=== PATIENT | male | born 1965 | race African-American/Black ===

== ENCOUNTER 2016-05-09 14:31 | Outpatient (CLI) | payer OTHER | END 2016-05-09 14:32 | disposition home or self-care (01) | DX: G47.33 Obstructive sleep apnea (adult) (pediatric) (principal) ==

== ENCOUNTER 2016-06-13 19:13 | Outpatient (CLI) | payer OTHER | END 2016-06-13 19:14 | disposition home or self-care (01) | DX: G47.33 Obstructive sleep apnea (adult) (pediatric) (principal); Z68.33 Body mass index [BMI] 33.0-33.9, adult ==

== ENCOUNTER 2016-06-27 10:32 | Outpatient (CLI) | payer OTHER | END 2016-06-27 10:33 | disposition home or self-care (01) | DX: G47.33 Obstructive sleep apnea (adult) (pediatric) (principal) ==

== ENCOUNTER 2016-08-10 08:59 | Outpatient (CLI) | payer OTHER | END 2016-08-10 09:00 | disposition home or self-care (01) | LOC: SC 08:59 | PROVIDERS: ATTEND Nurse Practitioner Family | DX: G47.33 Obstructive sleep apnea (adult) (pediatric) (principal) | CPT/HCPCS: 99212; 99214 ==

== ENCOUNTER 2016-09-15 09:42 | Outpatient (CLI) | payer OTHER | END 2016-09-15 09:43 | disposition home or self-care (01) | LOC: SC 09:42 | PROVIDERS: ATTEND Nurse Practitioner Family | DX: G47.33 Obstructive sleep apnea (adult) (pediatric) (principal) | CPT/HCPCS: 99212; 99214 ==

== ENCOUNTER 2016-11-25 21:48 | Emergency (ER) | payer OTHER ==
--- NOTE | 2016-11-25 22:28 | ED Physician Documentation ---
PD HPI SKIN - Stated complaint Stated Complaint: LT THIGH WELT - Chief complaint Chief Complaint: General - History obtained from History obtained from: Patient - History of Present Illness Timing - onset: Yesterday Timing - duration: Days (1) Timing - details: Gradual onset (he felt a sting or bite on left thigh while bicycle riding yesterday. Swatted at it but did not see what type of insect. Local sore yesterday and evening. This morning with redness of the area that has expanded through the day. No diffuse rash nor any feeling of swelling lips nor throat.) Location: LLE (anterior thigh.) Review of Systems Constitutional: denies: Fever, Chills, Myalgias Nose: denies: Rhinorrhea / runny nose, Congestion Throat: denies: Oral lesions / sores, Sore throat Respiratory: denies: Dyspnea, Cough PD PAST MEDICAL HISTORY - Past Medical History Cardiovascular: None Respiratory: None Endocrine/Autoimmune: None - Present Medications Home Medications: Ambulatory Orders Medication Instructions Recorded Confirmed Cephalexin [Keflex] 500 mg PO QID #20 capsule 11/25/16 Cetirizine [ZyrTEC] 10 mg PO DAILY #5 tablet 11/25/16 Dexamethasone [Decadron] 4 mg PO DAILY #5 tablet 11/25/16 amLODIPine [Norvasc] 10 mg PO DAILY 11/25/16 11/25/16 hydroCHLOROthiazide [Hydrodiuril] 50 mg PO DAILY 11/25/16 11/25/16 - Allergies Allergies/Adverse Reactions: Allergies Allergy/AdvReac Type Severity Reaction Status Date / Time No Known Drug Allergies Allergy Verified 11/25/16 22:03 PD ED PE NORMAL - Vitals Vital signs reviewed: Yes - General General: Alert and oriented X 3, No acute distress, Well developed/nourished - Derm Derm: Normal color, Warm and dry, Other (left thigh anteriorly with local area of redness and swelling about 6 cm diameter, with demarcated edges. Center of it with firmer area 2 cm diameter. No fluctuance and U/S did not show any fluid collection. ) - Neuro Neuro: No motor deficit, No sensory deficit Results - Vitals Vitals: Oxygen O2 Source Room air PD MEDICAL DECISION MAKING - ED course Complexity details: considered differential (timeframe would be more c/w local reaction, though consider early infection.), d/w patient Departure - Departure Disposition: 01 Home, Self Care Clinical Impression: Insect bite of left thigh with local reaction Qualifiers: Encounter type: initial encounter Qualified Code(s): S70.362A - Insect bite ( nonvenomous), left thigh, initial encounter Condition: Stable Record reviewed to determine appropriate education?: Yes Instructions: ED Bite Sting Insect Local Allergic React, ED Infec Skin Cellulitis Follow-Up: Dickson Irving DO [Primary Care Provider] - Prescriptions: Dexamethasone [Decadron] 4 mg PO DAILY #5 tablet Cephalexin [Keflex] 500 mg PO QID #20 capsule Cetirizine [ZyrTEC] 10 mg PO DAILY #5 tablet Comments: Cold towels to the area tonight and in the morning to help reduce swelling. This may be a pronounced local reaction to the sting and so treated with steroid and antihistamine. However could also be early infection developing and so will add cephalexin antibiotic for several days in case. Recheck if not improving over the next few days as I would expect it to get better between those 2 treatments. Discharge Date/Time: 11/25/16 22:55
[2016-11-25] MEDS ORDERED: CETIRIZINE 10 MG TABLET PO STA (22:40)
[2016-11-25] MEDS ORDERED: DEXAMETHASONE 10 MG/ML VIAL PO STA (22:40)
[2016-11-25] MEDS ORDERED: CEPHALEXIN 250 MG CAPSULE PO STA (22:40)
[2016-11-25] MEDS ORDERED: CEPHALEXIN 250 MG CAPSULE PO ONE (22:46)
[2016-11-25] MEDS ORDERED: CETIRIZINE 10 MG TABLET ONE (22:46)
[2016-11-25] MEDS ORDERED: DEXAMETHASONE 10 MG/ML VIAL ONE (22:46)
[2016-11-25 22:56] VITALS: BP 165/97
== END 2016-11-25 22:55 | disposition home or self-care (01) ==
LOC: ED 21:48
DX: S70.362A Insect bite (nonvenomous), left thigh, initial encounter (principal); W57.XXXA Bitten or stung by nonvenomous insect and other nonvenomous arthropods, initial encounter; Y93.55 Activity, bike riding
CPT/HCPCS: 99283; A9270

== ENCOUNTER 2016-12-20 18:53 | Emergency (ER) | payer OTHER ==
[2016-12-20 19:06] VITALS: BP 151/96
[2016-12-20] MEDS ORDERED: DOXYCYCLINE 100 MG TABLET PO ONE (21:04)
[2016-12-20] MEDS ORDERED: DEXAMETHASONE 10 MG/ML VIAL ONE (21:04)
[2016-12-20] MEDS ORDERED: OXYMETAZOLINE NASAL SPRAY NAS ONE (21:04)
[2016-12-20] MEDS ORDERED: CHERRY SYRUP 10 ML UDC PO ONE (21:05)
--- NOTE | 2016-12-20 23:38 | ED Physician Documentation ---
PD HPI URI - Stated complaint Stated Complaint: SPIT BLOOD/RT EAR ECHO - Chief complaint Chief Complaint: Heent - History obtained from History obtained from: Patient - History of Present Illness Timing - onset: How many days ago (several) Timing duration: Days Timing details: Gradual onset, Waxing and waning Associated symptoms: Ear pain, Nasal congestion, Sinus pain (right side), Other (intermittent nosebleed right side.). No: Fever, Sore throat Contributing factors: No: Sick contact, Travel, Immunocompromised Similar symptoms before: Has not had sx before Recently seen: Emergency Dept (about a month ago for bugbite and possible cellulitis on thigh which resolved after few days on meds. Feeling okay since.) Review of Systems Constitutional: denies: Fever, Chills Ears: reports: Loss of hearing (diminished, feels plugged), Ear pain. denies: Drainage/discharge, Tinnitus/ringing Nose: reports: Congestion, Epistaxis, Sinus pressure / pain Throat: denies: Dental pain / toothache, Sore throat Respiratory: denies: Cough Neurologic: denies: Focal weakness, Numbness, Confused, Altered mental status, Headache PD PAST MEDICAL HISTORY - Past Medical History Cardiovascular: None Respiratory: None Endocrine/Autoimmune: None - Present Medications Home Medications: Ambulatory Orders Medication Instructions Recorded Confirmed amLODIPine [Norvasc] 10 mg PO DAILY 11/25/16 12/20/16 hydroCHLOROthiazide [Hydrodiuril] 50 mg PO DAILY 11/25/16 12/20/16 - Allergies Allergies/Adverse Reactions: Allergies Allergy/AdvReac Type Severity Reaction Status Date / Time No Known Drug Allergies Allergy Verified 12/20/16 19:06 PD ED PE NORMAL - Vitals Vital signs reviewed: Yes - General General: Alert and oriented X 3, No acute distress, Well developed/nourished - HEENT HEENT: Ears normal, Moist mucous membranes, Pharynx benign, Dentition benign, Other (nares without obvious bleeding source but does have mucosal irritation right medial wall. No bleeding at this time front nor back of throat. ) - Neck Neck: Supple, no meningeal sign, No adenopathy - Cardiac Cardiac: RRR, No murmur - Respiratory Respiratory: Clear bilaterally - Derm Derm: Normal color, Warm and dry - Neuro Neuro: gripper attacher 2-12 intact, Normal speech Results - Vitals Vitals: Oxygen O2 Source Room air PD MEDICAL DECISION MAKING - ED course Complexity details: considered differential (intermittent epistaxis the past 2- 3 days, with rightr ear feeling plugged and facial pressure right side, sounding c/w sinus process. ), d/w patient Departure - Departure Disposition: 01 Home, Self Care Clinical Impression: Sinusitis, acute Qualifiers: Sinusitis location: maxillary Recurrence: non-recurrent Qualified Code(s): J01.00 - Acute maxillary sinusitis, unspecified Condition: Stable Record reviewed to determine appropriate education?: Yes Discharge Date/Time: 12/20/16 21:06
== END 2016-12-20 21:06 | disposition home or self-care (01) ==
LOC: ED 18:53
DX: J01.00 Acute maxillary sinusitis, unspecified (principal)
CPT/HCPCS: 99283; A9270

== ENCOUNTER 2017-02-07 21:44 | Emergency (ER) | payer OTHER ==
--- NOTE | 2017-02-07 23:48 | ED Physician Documentation ---
PD HPI HEENT - Stated complaint Stated Complaint: SWOLLEN GLAND NECK - Chief complaint Chief Complaint: Heent - History obtained from History obtained from: Patient - History of Present Illness Timing - onset: Today Timing - details: Gradual onset, Now resolved Location: Throat Associated symptoms: Swollen nodes. No: Fever, Congestion, Rhinorrhea, Trismus Similar symptoms before: Has not had sx before Recently seen: Not recently seen - Additional information Additional information: Patient is a 51 year old male with no significant past medical history who is presenting to the emergency department for neck swelling. Patient states that he felt something under the right side of his tongue, and then he noticed swelling in his right neck area. Patient states that his symptoms now seem better, and he felt something in the floor of his mouth. Review of Systems Constitutional: denies: Fever, Chills Eyes: denies: Decreased vision Ears: denies: Ear pain, Drainage/discharge Nose: denies: Rhinorrhea / runny nose, Congestion Throat: reports: Oral lesions / sores, Swollen tonsils. denies: Sore throat Cardiac: reports: Reviewed and negative Respiratory: denies: Dyspnea GI: denies: Nausea, Vomiting : reports: Reviewed and negative Skin: denies: Rash, Lesions Musculoskeletal: denies: Neck pain Neurologic: reports: Reviewed and negative Immunocompromised: denies: Immunocompromised PD PAST MEDICAL HISTORY - Past Medical History Cardiovascular: Hypertension Respiratory: Sleep apnea, CPAP use Neuro: None Endocrine/Autoimmune: None GI: None : None HEENT: None Psych: None Musculoskeletal: None Derm: None - Present Medications Home Medications: Ambulatory Orders Medication Instructions Recorded Confirmed amLODIPine [Norvasc] 10 mg PO DAILY 11/25/16 12/20/16 hydroCHLOROthiazide [Hydrodiuril] 50 mg PO DAILY 11/25/16 12/20/16 - Allergies Allergies/Adverse Reactions: Allergies Allergy/AdvReac Type Severity Reaction Status Date / Time No Known Drug Allergies Allergy Verified 02/07/17 21:53 - Social History Does the pt smoke?: No Smoking Status: Never smoker Does the pt drink ETOH?: Yes Does the pt have substance abuse?: No - Immunizations Immunizations are current?: Yes PD ED PE NORMAL - General General: Alert and oriented X 3, No acute distress - HEENT HEENT: Atraumatic, PERRL - Neck Neck: Supple, no meningeal sign, No adenopathy, No JVD - Cardiac Cardiac: RRR, No murmur - Respiratory Respiratory: No respiratory distress, Clear bilaterally - Abdomen Abdomen: Soft, Non tender, Non distended - Derm Derm: Normal color, Warm and dry, No rash - Extremities Extremities: No deformity, No edema - Neuro Neuro: Alert and oriented X 3, No motor deficit, No sensory deficit - Psych Psych: Normal mood PD ED PE EXPANDED - HEENT HEENT: Other (sialolithiasis on right side of patient's mouth) Results - Vitals Vitals: Vital Signs - 24 hr 02/07/17 02/07/17 21:45 23:58 Temperature 36.7 C Heart Rate 107 H 86 Respiratory 18 16 Rate Blood Pressure 158/95 H 146/86 H O2 Saturation 100 99 Oxygen O2 Source Room air PD MEDICAL DECISION MAKING - ED course Complexity details: reviewed old records, re-evaluated patient, considered differential, d/w patient ED course: Patient was seen and examined at bedside. Patient's findings were consistent with sialolithiasis. no imaging was indicated at this time. Patient required no further work up and was stable for discharge with outpatient follow up. Departure - Departure Disposition: 01 Home, Self Care Clinical Impression: Sialadenitis Condition: Good Instructions: ED Sublingual Gland Obstruction Follow-Up: Dickson Irving DO [Primary Care Provider] - Within 3 Days Comments: Your symptoms today were caused by sialadenitis, or blocked salivary gland. You can massage the area under you tongue to help dislodge the stones. It is also important to drink lots of water and stay well hydrated. You can use sour candies or food to help with the salivation as well. You should follow up with your doctor as needed. You may return to the emergency department at any time for new, worsening or uncontrollable symptoms. Discharge Date/Time: 02/07/17 23:59
[2017-02-07 23:59] VITALS: BP 146/86
== END 2017-02-07 23:59 | disposition home or self-care (01) ==
LOC: ED 21:44
DX: K11.5 Sialolithiasis (principal); I10 Essential (primary) hypertension
CPT/HCPCS: 99282; 99283

== ENCOUNTER 2017-12-26 21:01 | Emergency (ER) | payer OTHER ==
[2017-12-26 21:41] LABS: BASOPHILS # (AUTO) 0.1 10^3/uL (0.0-0.1); BASOPHILS % (AUTO) 1.1 %; EOSINOPHILS # (AUTO) 0.1 10^3/uL (0.0-0.7); EOSINOPHILS % (AUTO) 1.5 %; LYMPHOCYTES # (AUTO) 1.9 10^3/uL (1.5-3.5); LYMPHOCYTES % (AUTO) 35.8 %; MEAN CORPUSCULAR HEMOGLOBIN 30.5 pg (27.0-31.0); MEAN CORPUSCULAR HGB CONC 34.8 g/dL (32.0-36.0); MEAN CORPUSCULAR VOLUME 87.6 fL (80.0-94.0); MEAN PLATELET VOLUME 7.9 fL (7.4-11.4); MONOCYTES # (AUTO) 0.6 10^3/uL (0.0-1.0); MONOCYTES % (AUTO) 11.3 %; NEUTROPHILS # (AUTO) 2.7 10^3/uL (1.5-6.6); NEUTROPHILS % (AUTO) 50.3 %; PLT - PLATELET COUNT 262 10^3/uL (130-450); RED CELL DISTRIBUTION WIDTH 14.2 % (12.0-15.0); WHITE BLOOD COUNT 5.3 x10^3/uL (4.8-10.8)
[2017-12-26 21:49] LABS: ALBUMIN 4.6 g/dL (3.2-5.5); ALBUMIN/GLOBULIN RATIO 1.2 (1.0-2.2); BILIRUBIN,TOTAL 0.6 mg/dL (0.2-1.0); CALCIUM 9.5 mg/dL (8.5-10.3); CREATININE 0.9 mg/dL (0.6-1.2); TOTAL PROTEIN 8.4 g/dL (6.7-8.2)
--- NOTE | 2017-12-26 22:03 | XRAY Report ---
Reason: chest pain Procedure Date: 12/26/2017 Accession Number: [id number] / [id number] Procedure: XR - Chest 1 View X-Ray CPT Code: 79050 FULL RESULT: EXAM: CHEST RADIOGRAPHY EXAM DATE: 12/26/2017 09:51 PM. CLINICAL HISTORY: Chest pain. COMPARISON: None. TECHNIQUE: 1 view. FINDINGS: Lungs/Pleura: No focal opacities evident. No pleural effusion. No pneumothorax. Mediastinum: Within exam limitations, the cardiomediastinal contour is normal. Other: ECG leads overlie the chest. IMPRESSION: No acute findings. RADIA
[2017-12-26] MEDS ORDERED: POTASSIUM BICARB 25 MEQ TABLET PO STA (22:40)
--- NOTE | 2017-12-26 22:41 | ED Physician Documentation ---
PD HPI CHEST PAIN - Stated complaint Stated Complaint: R CHEST FLUTTER - Chief complaint Chief Complaint: Cardiac - History obtained from History obtained from: Patient - History of Present Illness Timing - onset: Today Timing - onset during: Rest Timing - details: Abrupt onset, Still present Quality: Aching, Sharp Location: Right chest Worsened by: Movement, Palpation, Position Similar symptoms before: No diagnosis Recently seen: Not recently seen - Additional information Additional information: Patient is a 52 year old male with no significant past medical history who is presenting to the emergency department for right sided chest pain. patient states that he was working out this afternoon and about an hour later his right chest started twitching. patient did do chest exercises while at the gym today. Review of Systems Ten Systems: 10 systems reviewed and negative Cardiac: reports: Chest pain / pressure. denies: Palpitations, Pedal edema Respiratory: denies: Dyspnea, Cough, Wheezing GI: denies: Nausea PD PAST MEDICAL HISTORY - Past Medical History Cardiovascular: Hypertension Respiratory: Sleep apnea, CPAP use Endocrine/Autoimmune: None GI: None : None HEENT: None Psych: None Musculoskeletal: None Derm: None - Present Medications Home Medications: Ambulatory Orders Medication Instructions Recorded Confirmed Hydrochlorothiazide-Triamteren 12/26/17 - Allergies Allergies/Adverse Reactions: Allergies Allergy/AdvReac Type Severity Reaction Status Date / Time No Known Drug Allergies Allergy Verified 02/07/17 21:53 - Social History Does the pt smoke?: No Smoking Status: Never smoker Does the pt drink ETOH?: Yes Does the pt have substance abuse?: No - Immunizations Immunizations are current?: Yes PD ED PE NORMAL - Vitals Vital signs reviewed: Yes - General General: Alert and oriented X 3, No acute distress - HEENT HEENT: Atraumatic, PERRL - Neck Neck: No JVD - Cardiac Cardiac: RRR, No murmur - Respiratory Respiratory: No respiratory distress, Clear bilaterally - Abdomen Abdomen: Soft - Derm Derm: Normal color, Warm and dry - Extremities Extremities: No deformity - Neuro Neuro: Alert and oriented X 3, No motor deficit, Normal speech Eye Opening: Spontaneous - Psych Psych: Normal mood PD ED PE EXPANDED - Cardiac Cardiac: Chest wall TTP (tenderness to palpation of right pectoral muscles) Results - Vitals Vitals: Vital Signs - 24 hr 12/26/17 12/26/17 21:12 22:01 Temperature 37.2 C Heart Rate 94 99 Respiratory 18 18 Rate Blood Pressure 162/109 H 143/87 H O2 Saturation 99 99 Oxygen O2 Source Room air - EKG (time done) 2113 Rate: Rate (enter#) (93) Rhythm: NSR [place]: Normal Ischemia: ST elevation c/w repol Compare to prior EKG: Old EKG unavailable 2255 Rate: Rate (enter#) (98) Rhythm: NSR [place]: Normal Intervals: Normal IA QRS: Normal Ischemia: ST elevation c/w repol Compare to prior EKG: Unchanged from prior EKG - Labs Labs: Laboratory Tests 12/26/17 12/26/17 12/26/17 21:25 21:25 21:25 WBC 5.3 RBC 5.90 Hgb 18.0 Hct 51.7 MCV 87.6 MCH 30.5 MCHC 34.8 RDW 14.2 Plt Count 262 MPV 7.9 Neut # (Auto) 2.7 Lymph # (Auto) 1.9 Lea # (Auto) 0.6 Eos # (Auto) 0.1 Baso # (Auto) 0.1 Absolute Nucleated RBC 0.02 Nucleated RBC % 0.4 Sodium 137 Potassium 3.2 L Chloride 97 L Carbon Dioxide 31 Anion Gap 9.0 BUN 11 Creatinine 0.9 Estimated GFR (MDRD) 108 Glucose 105 H Calcium 9.5 Total Bilirubin 0.6 AST 49 H ALT 84 H Alkaline Phosphatase 72 Troponin I < 0.04 B-Natriuretic Peptide Total Protein 8.4 H Albumin 4.6 Globulin 3.8 Albumin/Globulin Ratio 1.2 Lipase 28 12/26/17 21:55 WBC RBC Hgb Hct MCV MCH MCHC RDW Plt Count MPV Neut # (Auto) Lymph # (Auto) Lea # (Auto) Eos # (Auto) Baso # (Auto) Absolute Nucleated RBC Nucleated RBC % Sodium Potassium Chloride Carbon Dioxide Anion Gap BUN Creatinine Estimated GFR (MDRD) Glucose Calcium Total Bilirubin AST ALT Alkaline Phosphatase Troponin I B-Natriuretic Peptide 8 Total Protein Albumin Globulin Albumin/Globulin Ratio Lipase - Rads (name of study) chest x-ray Radiology: Final report received (normal) PD MEDICAL DECISION MAKING - ED course Complexity details: reviewed old records, reviewed results, re-evaluated patient, considered differential, d/w patient ED course: Patient was seen and examined at bedside. patient was well appearing and in no distress. ekg was performed and showed ERIKA. iv access was gained and labs were drawn. chest x-ray was ordered. Patient's diagnostics, aside from mild hypokalemia were within normal limits. Patient's repeat ekg was unchanged and troponin remained negative. patient had reproducible right sided chest pain. he had heart score of 1 and PERC 0. patient required no further work up and was stable for discharge with outpatient follow up. - Sepsis Event Vital Signs: Vital Signs - 24 hr 12/26/17 12/26/17 21:12 22:01 Temperature 37.2 C Heart Rate 94 99 Respiratory 18 18 Rate Blood Pressure 162/109 H 143/87 H O2 Saturation 99 99 Oxygen O2 Source Room air Departure - Departure Disposition: Home, Self Care Clinical Impression: Chest wall pain Condition: Good Instructions: ED Strain Chest Wall Follow-Up: Dickson Irving DO [Primary Care Provider] - As Needed Comments: Your diagnostics today are within normal limits. You pain is likely secondary to your muscles as opposed to cardiac in nature. You should follow up with you doctor if your symptoms persist. You may return to the emergency department at any time for new, worsening or uncontrollable symptoms. Discharge Date/Time: 12/26/17 23:51
[2017-12-26 23:30] VITALS: BP 139/94
== END 2017-12-26 23:51 | disposition home or self-care (01) ==
LOC: ED 21:01
DX: R07.89 Other chest pain (principal); I10 Essential (primary) hypertension; E87.6 Hypokalemia
CPT/HCPCS: 36415; 71045; 80053; 83690; 83880; 84484; 85025; 93005; 99283; A9270